=== PATIENT | male | born 1970 | race African-American/Black ===

== ENCOUNTER 2016-08-06 05:23 | Emergency (ER) | payer BC ==
[2016-08-06] MEDS ORDERED: methylPREDNISolone Sodium Succinate 125 MG/2 ML SDV IM ONE (05:51)
--- NOTE | 2016-08-06 05:59 | EDM.PDOC ---
ED HPI GENERAL MEDICAL PROBLEM - General Chief Complaint: Lower Extremity Injury/Pain Stated Complaint: POSS RIGHT KNEE INJURY Time Seen by Provider: 08/06/16 05:42 Source of Information: Reports: Patient History Limitations: Reports: No Limitations - History of Present Illness INITIAL COMMENTS - FREE TEXT/NARRATIVE: This is a 46-year-old male. He comes tonight his last 48 hours he's been having pain in his right knee it feels like gout. He states normally the gout calms either in his great toe or his knees. It's now in his right knee. Normally when this happens he states he goes to the doctor and gets a shot of steroids and placed on indomethacin cuts back on his protein low drinks lots of fluids and normally gets better quickly. He does take allopurinol on a regular basis. He just moved up here and his diet he states has been mostly meat products and that 's what he thinks he has a flareup of his gout. He had not been taking any anti- inflammatories at this point has not been using heat to his knee. He denies any other acute symptoms. Right Knee Pain Score (Numeric/FACES): 7 - Related Data Allergies Allergy/AdvReac Type Severity Reaction Status Date / Time morphine Allergy Vomiting Verified 08/06/16 05:34 Home Meds: Home Meds Allopurinol [Zyloprim] 08/06/16 [History] Hydrochlorothiazide 08/06/16 [History] Indomethacin 50 mg PO TID #15 capsule 08/06/16 [Rx] Labetalol HCl [Labetalol] 08/06/16 [History] Lisinopril 08/06/16 [History] Pravastatin [Pravachol] 08/06/16 [History] amLODIPine [Norvasc] 08/06/16 [History] Past Medical History Cardiovascular History: Reports: High Cholesterol, Hypertension Musculoskeletal History: Reports: Gout Social & Family History - Tobacco Use Smoking Status *Q: Unknown Ever Smoked Review of Systems - Review of Systems Review Of Systems: See Below Constitutional: Denies: Chills, Fever Eyes: Reports: No Symptoms Ears: Reports: No Symptoms Nose: Reports: No Symptoms Mouth/Throat: Reports: No Symptoms Respiratory: Reports: No Symptoms Cardiovascular: Reports: No Symptoms GI/Abdominal: Reports: No Symptoms Musculoskeletal: Reports: Other (As per history of present illness) Skin: Reports: No Symptoms Neurological: Reports: No Symptoms Psychiatric: Reports: No Symptoms Trauma Exam - Physical Exam Exam: See Below Exam Limited By: No Limitations General Appearance: Reports: Alert, WD/WN, No Apparent Distress Head: Reports: Normocephalic Ears: Reports: Normal External Exam Nose: Reports: Normal Inspection Throat/Mouth: Reports: Normal Inspection, Normal Lips, Normal Voice Neck: Reports: Full Range of Motion Respiratory Exam: Reports: No Respiratory Distress Back: Reports: Full Range of Motion Extremities: Other (Right knee appears to have minimal effusion noted, he has some difficulty in complete flexion of the knee but he can extend the leg without excessive discomfort, there is no inflammation noted of the knee no warmth of the skin on the knee, the knee does appear to be intact as far as the anterior cruciate ligament and PCL, collateral ligaments also appear to be intact.) Neurologic: Reports: No Motor/Sensory Deficits, Alert, Normal Mood/Affect, Oriented x 3 Skin: Reports: Normal Color, Warm/Dry Course - Vital Signs Last Recorded V/S: Last Vital Signs Temp 98.1 F 08/06/16 05:31 Pulse 90 08/06/16 05:31 Resp 16 08/06/16 05:31 BP 123/83 08/06/16 05:31 Pulse Ox 100 08/06/16 05:31 - Orders/Labs/Meds Orders: Active Orders 24 hr Category Date Time Status methylPREDNISolone Sod Succ [Solu-MEDROL] Med 08/06/16 05:51 Once 125 mg IM ONETIME ONE Departure - Departure Time of Disposition: 05:54 Disposition: Home, Self-Care 01 Condition: fair Clinical Impression: Acute gouty arthritis Right knee pain Qualifiers: Chronicity: acute Qualified Code(s): M25.561 - Pain in right knee - Discharge Information Prescriptions: Indomethacin 50 mg PO TID #15 capsule Instructions: Gout, [id number] Forms: ED Department Discharge, Return to Work/School Form Additional Instructions: When you start indomethacin it can have an effect on your blood pressure so monitor the blood pressure carefully, also once the knee starts feeling better taper off the indomethacin as soon as possible since it is hard on your stomach , be sure to have some food in your stomach when you take the medication, use heat to the knee as much as possible keep it elevated as much as possible, cut back on your protein load and eat more carbs, continue with your allopurinol, followup with a family physician later this week for recheck or return to the ER if your symptoms worsen - My Orders Last 24 Hours: My Active Orders 08/06/16 05:51 methylPREDNISolone Sod Succ [Solu-MEDROL] 125 mg IM ONETIME ONE - Assessment/Plan Last 24 Hours: My Active Orders 08/06/16 05:51 methylPREDNISolone Sod Succ [Solu-MEDROL] 125 mg IM ONETIME ONE
[2016-08-06 06:12] VITALS: BP 123/83
== END 2016-08-06 06:06 | disposition home or self-care (01) ==
LOC: JD.ED 05:23
DX: M10.9 Gout, unspecified (principal); E78.00 Pure hypercholesterolemia, unspecified; I10 Essential (primary) hypertension; Z88.5 Allergy status to narcotic agent; Z79.899 Other long term (current) drug therapy
CPT/HCPCS: 96372; 99283; J2930